=== PATIENT | female | born 1980 | race Asian ===

== ENCOUNTER → 2018-02-26 | Outpatient (CLI) | payer MEDICAID | END | disposition home or self-care (01) | LOC: RAH 16:03 | DX: M79.661 Pain in right lower leg (principal) | CPT/HCPCS: 93971 ==

== ENCOUNTER 2018-04-26 15:32 | Observation (INO) | payer MEDICAID | END 2018-04-26 17:46 | disposition home or self-care (01) | LOC: LDH 15:32 | DX: O36.8130 Decreased fetal movements, third trimester, not applicable or unspecified (principal); O09.523 Supervision of elderly multigravida, third trimester; Z3A.39 39 weeks gestation of pregnancy | CPT/HCPCS: 59025; 76819; G0378 ×3 ==